=== PATIENT | female | born 1990 | race Caucasian/White ===

== ENCOUNTER → 2018-03-18 19:55 | Observation (INO) ==
[2018-03-18 16:45] LABS: Bilirubin,Urine Negative (Negative); Blood,Urine Negative (Negative); Clarity,Urine Cloudy (Clear); Color,Urine Yellow (Yellow); Glucose,Urine (UA) Normal (Normal); Ketones,Urine 15 mg/dL (Negative); Leukocyte Esterase,Urine Large (Negative); Nitrite,Urine Negative (Negative); PH,Urine 5.5 pH Units (5.0-8.0); Protein,Urine Negative (Neg-Trace); Specific Gravity,Urine 1.022 (1.010-1.025); Urobilinogen,Urine Normal (Normal)
[2018-03-18 16:48] LABS: Amphetamine Screen,Urine Negative ng/mL (Cutoff=1000); Barbiturate Screen,Urine Negative ng/mL (Cutoff=200); Benzodiazepines Screen,Urine Negative ng/mL (Cutoff=200); Cannabinoid Screen,Urine Negative ng/mL (Cutoff = 50); Cocaine Screen,Urine Negative ng/mL (Cutoff= 300); Opiate Screen,Urine Negative ng/mL (Cutoff=300); Phencyclidine Screen,Urine Negative ng/mL (Cutoff=25)
[2018-03-18 16:51] LABS: Bacteria,Urine Few per hpf (None-Few); Hyaline Casts,Urine None Seen per lpf (None-Few); RBC,Urine 0-3 per hpf (0-3)
[2018-03-18 17:04] LABS: Squamous Epithelial Cell,Urine Few per lpf (None-Few)
[2018-03-18 17:05] LABS: WBC,Urine 0-3 per hpf (0-3)
--- NOTE | 2018-03-18 17:18 | OB/GYN Progress Note ---
Date of Encounter: 03/18/18 Time of Encounter: 17:13 - Assessment and Plan (1) 33 weeks gestation of Current Visit: Yes Status: Acute Admitted to observation for labor and vaginal discharge evaluation (2) Vaginal discharge during in third trimester Current Visit: Yes Status: Acute Sterile speculum exam completed with large amount of green watery discharge in vaginal vault as well as adherent to vaginal dunham. Fern negative, nitrazine negative, vaginosis panel collected and sent to lab. Awaiting results. Treat for vaginal infection as appropriate (3) NST (non-stress test) reactive Current Visit: Yes Status: Acute FHR 145 bpm, moderate variability, +15 x 15 accelerations, no decelerations. Uterine irritability noted on monitor, by mouth hydration initiated. Subjective - Subjective Principal diagnosis: Vaginal discharge Interval history: Hazel is a at 33w5d who present with complaint of watery and "chunky" vaginal discharge for the past week approximately. She states she noticed the watery fluid today. Patient reports positive movement, denies bleeding, denies intercourse in the last 48 hours. Her has been uncomplicated thus far. Antepartum ROS: loss of fluid, movement normal, contractions, no vaginal bleeding Objective - Vital Signs Vital Signs: Intake and Output 03/18/18 03/18/18 03/18/18 07:59 15:59 23:59 Other: Weight 61.3 kg Patient Weight 03/18/18 23:59 Weight 61.3 kg - Exam FHR: category 1 FHR comments: FHR 145 bpm, moderate variability, +15x15 accels, no decelerations Uterine irritability noted, ctx q 1-[address] Matamoros aware of patient arrival, complaint and current EFM tracing. Auscultation: bilateral: normal Abdomen: Present: normal appearance, soft, gravid Uterus: Present: normal Cervical dilation: Closed - Labs Labs: Abnormal lab results Urine Clarity Cloudy (Clear) A 03/18/18 15:34 Urine Ketones 15 mg/dL (Negative) H 03/18/18 15:34 Ur Leukocyte Esterase Large (Negative) H 03/18/18 15:34 Ur Culture Indicated? YES (NO) A 03/18/18 15:34
[2018-03-18 17:34] LABS: Candida DNA DETECTED (Not Detect); Gardnerella DNA DETECTED (Not Detect); Trichomonas DNA Not Detected (Not Detect)
--- NOTE | 2018-03-18 19:30 | Discharge Summary ---
Date of Encounter: 03/18/18 Time of Encounter: 19:29 - Discharge Diagnosis (1) 33 weeks gestation of Priority: Primary Status: Acute Comments: Admitted to observation for vaginal discharge No cervical change during stay. (2) Vaginal discharge during in third trimester Priority: Secondary Status: Acute Comments: Vaginosis panel returned + for BV and yeast. Rx for Flagyl and Terazol sent to patient's pharmacy (3) NST (non-stress test) reactive Priority: Secondary Status: Acute Comments: FHR 125 bpm, moderate variability, +15x15 accels, no decels. (4) Yeast vaginitis Priority: Secondary Status: Acute Comments: Terazol 7 sent to patient's pharmacy (5) Bacterial vaginosis Priority: Secondary Status: Acute Comments: Flagyl prescription sent to patient's pharmacy - Discharge Medications Home Medications: Pnv No.122/Iron/Folic Acid [ Multi Tablet] 1 tab PO DAILY 03/18/18 [History] Allergies/Adverse Reactions: Allergy/AdvReac Type Severity Reaction Status Date / Time Penicillins Allergy Hives Verified 07/26/17 09:09 Data Procedures and tests throughout hospitalization: Laboratory Tests 03/18/18 03/18/18 03/18/18 15:34 15:34 15:34 Urine Color Yellow Urine Clarity Cloudy A Urine pH 5.5 Ur Specific [place] 1.022 Urine Protein Negative Urine Glucose (UA) Normal Urine Ketones 15 H Urine Blood Negative Urine Nitrite Negative Urine Bilirubin Negative Urine Urobilinogen Normal Ur Leukocyte Esterase Large H Urine Microscopic RBC 0-3 Urine Microscopic WBC 0-3 Ur Squamous Epith Cells Few Urine Bacteria Few Hyaline Casts None Seen Ur Culture Indicated? YES A Urine Opiates Screen Negative Ur Barbiturates Screen Negative Ur Phencyclidine Scrn Negative Ur Amphetamines Screen Negative U Benzodiazepines Scrn Negative Urine Cocaine Screen Negative U Marijuana (THC) Screen Negative Ur Drug Screen Interp See Below Ange species DNA DETECTED A Gardnerella DNA Probe DETECTED A Trichomonas DNA Probe Not Detected Labs on day of discharge: Labs from last 24 hours 03/18/18 03/18/18 03/18/18 15:34 15:34 15:34 Urine Color Yellow Urine Clarity Cloudy A Urine pH 5.5 Ur Specific [place] 1.022 Urine Protein Negative Urine Glucose (UA) Normal Urine Ketones 15 H Urine Blood Negative Urine Nitrite Negative Urine Bilirubin Negative Urine Urobilinogen Normal Ur Leukocyte Esterase Large H Urine Microscopic RBC 0-3 Urine Microscopic WBC 0-3 Ur Squamous Epith Cells Few Urine Bacteria Few Hyaline Casts None Seen Ur Culture Indicated? YES A Urine Opiates Screen Negative Ur Barbiturates Screen Negative Ur Phencyclidine Scrn Negative Ur Amphetamines Screen Negative U Benzodiazepines Scrn Negative Urine Cocaine Screen Negative U Marijuana (THC) Screen Negative Ur Drug Screen Interp See Below Ange species DNA DETECTED A Gardnerella DNA Probe DETECTED A Trichomonas DNA Probe Not Detected Date of admission: 03/18/18 15:01 Primary care physician: PCP NONE Discharging clinician: Gilda Molina Anticipated date of discharge: 03/18/18 - Patient Status Disposition: Home, Self-Care Condition: Good Functional capacity at discharge: independent ambulation Overall status at discharge: patient is progressing back to baseline - Discharge Instructions Follow Up With: NONE,PCP [Primary Care Provider] - - Diet and Activity Activity: resume usual activities as tolerated Diet: regular diet Hospital Course LANGUAGE INTERPRETER Hospital course: See antepartum note. Time Attestation: Total time spent providing and/or coordinating discharge services: Time Spent: Less than 30 minutes Exam - Constitutional General appearance IM: A&O X 3, pleasant, no acute distress, answers questions appropriately - Respiratory Respiratory exam: Present: CTAB - Cardiovascular Cardiovascular exam IM: Present: RRR, +S1, +S2 - GI/Abdominal GI/Abdominal exam IM: normal bowel sounds - Extremities Exam Extremities exam IM: Present: full ROM, normal capillary refill, normal inspection - Neurological Exam Neurological exam: alert, normal gait, oriented X3 - VTE Reasons for not Prescribing Prophylaxis: Treatment not Indicated - Low risk for VTE
[~2018-03-18 19:55] MED LIST: Ringers Solution, Lactated 1,000 ML IVC ONE
== END | disposition home or self-care (01) ==
LOC: 1NENULAB
PROVIDERS: ADMIT Registered Nurse; ATTEND Registered Nurse

== ENCOUNTER → 2018-04-18 21:50 | Observation (INO) ==
[2018-04-18 21:21] LABS: Amphetamine Screen,Urine Negative ng/mL (Cutoff=1000); Barbiturate Screen,Urine Negative ng/mL (Cutoff=200); Benzodiazepines Screen,Urine Negative ng/mL (Cutoff=200); Cannabinoid Screen,Urine Negative ng/mL (Cutoff = 50); Cocaine Screen,Urine Negative ng/mL (Cutoff= 300); Opiate Screen,Urine Negative ng/mL (Cutoff=300); Phencyclidine Screen,Urine Negative ng/mL (Cutoff=25)
--- NOTE | 2018-04-18 21:53 | Discharge Summary ---
Date of Encounter: 04/18/18 Time of Encounter: 21:48 - Discharge Diagnosis (1) 38 weeks gestation of Priority: Primary Status: Acute Comments: Admit observation for labor evaluation. (2) False labor after 37 weeks of gestation without delivery Priority: Secondary Status: Acute Comments: Patient 2 cm without change after 2 hours of observation. To follow-up on with Dr. Castro for routine visit (3) NST (non-stress test) reactive Priority: Secondary Status: Acute Comments: FHR 125 bpm, moderate variability, +15x15 accels, no decels. - Discharge Medications Home Medications: Pnv No.122/Iron/Folic Acid [ Multi Tablet] 1 tab PO DAILY 03/18/18 [History] Allergies/Adverse Reactions: Allergy/AdvReac Type Severity Reaction Status Date / Time Penicillins Allergy Mild Hives Verified 04/18/18 19:42 Data Procedures and tests throughout hospitalization: Laboratory Tests 04/18/18 19:55 Urine Opiates Screen Negative Ur Barbiturates Screen Negative Ur Phencyclidine Scrn Negative Ur Amphetamines Screen Negative U Benzodiazepines Scrn Negative Urine Cocaine Screen Negative U Marijuana (THC) Screen Negative Ur Drug Screen Interp See Below Labs on day of discharge: Labs from last 24 hours 04/18/18 19:55 Urine Opiates Screen Negative Ur Barbiturates Screen Negative Ur Phencyclidine Scrn Negative Ur Amphetamines Screen Negative U Benzodiazepines Scrn Negative Urine Cocaine Screen Negative U Marijuana (THC) Screen Negative Ur Drug Screen Interp See Below Date of admission: 04/18/18 19:23 Discharging clinician: Gilda Molina Anticipated date of discharge: 04/18/18 - Patient Status Disposition: Home, Self-Care Condition: Good Functional capacity at discharge: independent ambulation Overall status at discharge: patient is progressing back to baseline - Discharge Instructions Additional Instructions: LABOR AND DELIVERY DISCHARGE INSTRUCTIONS Signs and Symptoms to be Reported to your Doctor Immediately: * Sudden gush, continuous or intermittent lead of fluid from vagina (note the time of gush and color of fluid) * Onset of bright red vaginal bleeding with or without pain (if you had a vaginal exam during this visit you may notice some dark red spotting. This is normal.) * Contractions that are 5 minutes apart (from the beginning of one contraction to the beginning of the next) and last 45-60 seonds; contractions that you can no longer walk, talk or laugh through. * A change in the baby's activity. This could be an increase or decrease in activity. * Severe headache which does not go away with tylenol. * Sudden swelling in the face, hands, arms and/or legs. * Upper abdominal pain - sometimes associated with heartburn or nausea and is not relieved by Maalox, Mylanta or Tums. * Kick Counts __ One hour after a meal, lay down on one side in a quiet place. Count the number of time the baby moves during an hour. If less than 6 movements, notify your physician Diet: *Force fluids, 8 to 10 tall glasses of fluid per day - may include popsicles and jello *Limit caffeine - this includes chocolate, coffee, tea, any soft drink containing such as all jakob, Lobo Yellow and Mountain Dew - Diet and Activity Activity: resume usual activities as tolerated Diet: regular diet Hospital Course HEALTH SERVICES DIRECTOR Hospital course: Sol arrived with complaints of contractions since early this morning. He was 2 cm on arrival, after 2 hours of observation the cervix is without change. She has a reactive NST irregular contractions are noted and she has a follow-up appointment with Dr. Castro on for routine care. She reports positive movement, denies vaginal bleeding and fluid leakage. Time Attestation: Total time spent providing and/or coordinating discharge services: Time Spent: Less than 30 minutes Exam - Constitutional General appearance IM: A&O X 3, pleasant, no acute distress, answers questions appropriately - Respiratory Respiratory exam: Present: CTAB - Cardiovascular Cardiovascular exam IM: Present: RRR, +S1, +S2 - GI/Abdominal GI/Abdominal exam IM: normal bowel sounds, soft - Rectal Rectal exam: deferred - Extremities Exam Extremities exam IM: Present: full ROM, normal capillary refill, normal inspection - Neurological Exam Neurological exam: alert, normal gait, oriented X3 - VTE Reasons for not Prescribing Prophylaxis: Treatment not Indicated - Low risk for VTE
== END | disposition home or self-care (01) ==
LOC: 1NENULAB
PROVIDERS: ADMIT Registered Nurse; ATTEND Registered Nurse

== ENCOUNTER 2018-04-25 02:55 | Inpatient (IN) ==
[~2018-04-25 02:55] MED LIST changes: +*HR* Nalbuphine 10 MG/ML AMPUL IVP PRN; +Famotidine 20 MG/2 ML VIAL IVP PRN; +Lidocaine 1% 20 ML MDV INFILT PRN; +Metoclopramide 10 MG/2 ML VIAL IVP PRN; +Naloxone 0.4 MG/ML INJ IVP PRN; +Ondansetron 4 MG/2 ML VIAL IVP PRN; -Ringers Solution, Lactated 1,000 ML IVC ONE
[2018-04-25] MEDS ORDERED: Ringers Solution, Lactated 1,000 ML IVC SCH (03:00)
--- NOTE | 2018-04-25 03:02 | OB/GYN History & Physical ---
Date of Encounter: 04/25/18 Time of Encounter: 02:58 Assessment and Plan (1) 39 weeks gestation of Current visit: Yes Status: Acute Admit for labor GBS negative Consider pitocin / AROM for augmentation Patient may have nubain/epidural upon request Anticipate vaginal delivery POC per consult with Dr Morse History of Present Illness Chief complaint: Laboring HPI: Ms. Jenkins is a 27 year old that arrives to triage with c/o contractions that began yesterday morning at 0700 and have progressively gotten worse. She states positive movement. She denies leaking of fluid, vaginal bleeding, vaginal discharge, headache, visual disturbances, and epigastric pain. She was seen by Dr Sharp for her care which was adequate. She has had an uncomplicated . Labs: Blood type A- HIV NR HepC NR Hep B NR RPR NR Varicella Immune Rubella Immune GBS negative Past Med Surg Social Fam HX - Past Medical History Medical history: non-contributory Additional medical history: Gallbladder Psychiatric history: no psych history - Past Surgical History Surgical History: cholecystectomy - Social History Smoking Status: Never smoker Smokeless Tobacco Status: No Alcohol use: none Drug use: none - Family History Mother Family Member Ethnicity: Non- Living Status: Still Living Hx Family Cardiac Disorders: No Hx Family Respiratory Disorders: No Hx Family Cancer: No Hx Family GI Disorders: No Hx Family Endocrine Disorder: No Hx Family Neuromuscular Disorders: No Hx Family Neurologic Disorders: No Hx Family HEENT Disorders: No Hx Family Autoimmune Disorders: No Obstetrical History - Pregnancies : 1 Para: 0 Term: 0 : 0 Ab's: 0 Livin Medications and Allergies Pnv No.122/Iron/Folic Acid [ Multi Tablet] 1 tab PO DAILY 03/18/18 [History] Allergy/AdvReac Type Severity Reaction Status Date / Time Penicillins Allergy Mild Hives Verified 04/18/18 19:42 Amoxicillin Allergy Hives Verified 04/25/18 01:55 latex Allergy Rash Verified 04/25/18 01:55 Review of System OB All systems PM: reviewed and no additional remarkable complaints except as stated Exam - Constitutional Constitutional: well developed, well nourished, average body habitus, moderate distress - HEENT HEENT: Normocephaly, Mucus Membranes Moist - Neck Neck exam: full ROM - Lungs Respiratory exam: CTAB - Cardiovascular Cardiovascular exam: RRR, +S1, +S2 - Abdomen Abdomen: Present: bowel sounds normal, gravid, non tender - Extremities Extremities exam: normal capillary refill, normal inspection, radial pulses palpable and symmetrical Deep Tendon Reflex Grade: 2+ Normal - Vulva Vulva: bilateral: normal - Vagina Vagina: Present: normal moisture - Cervix Dilation: 3 (per RN exam) Effacement: 90 (per RN exam) Station: -2 - Uterus Uterus exam: Present: normal size, normal contour - Anus/Rectum Anus/Rectum: Present: normal perianal skin Results All other labs normal. - VTE Reasons for not Prescribing Prophylaxis: Treatment not Indicated - Low risk for VTE
[2018-04-25 03:17] LABS: Amphetamine Screen,Urine Negative ng/mL (Cutoff=1000); Barbiturate Screen,Urine Positive ng/mL (Cutoff=200); Benzodiazepines Screen,Urine Negative ng/mL (Cutoff=200); Cannabinoid Screen,Urine Negative ng/mL (Cutoff = 50); Cocaine Screen,Urine Negative ng/mL (Cutoff= 300); Opiate Screen,Urine Negative ng/mL (Cutoff=300); Phencyclidine Screen,Urine Negative ng/mL (Cutoff=25)
[2018-04-25 03:44] LABS: Basophils % 0.2 %; Eosinophils % 0.1 %; Hematocrit 34.7 % (35.3-44.9); Hemoglobin 11.4 g/dL (11.5-15.4); Immature Granulocytes % 0.4 % (0-4); Lymphocytes # 2.3 K/mcL (0.6-4.6); Lymphocytes % 22.9 %; Mean Corpuscular HGB Conc 32.9 g/dL (31.6-35.5); Mean Corpuscular Hemoglobin 28.8 pg (28.0-33.3); Mean Corpuscular Volume 87.6 fL (83.0-100.0); Mean Platelet Volume 13.1 fL (9.4-12.4); Monocytes # 0.8 K/mcL (0.0-1.3); Monocytes % 7.9 %; Platelet Count 165 K/mcL (140-400); Red Blood Count 3.96 M/mcL (3.82-4.97); Red Cell Distribution Width 12.7 % (11.5-14.5); Segmented Neutrophils % 68.5 %
[2018-04-25] MEDS ORDERED: *HR* FentaNYL (PF) 100 MCG/2 ML VIAL EP ONE (05:11)
--- NOTE | 2018-04-25 05:11 | Anesthesia Evaluation PreOp ---
Date of Encounter: 04/25/18 Time of Encounter: 05:09 - Past History Planned Operation: harriet Cardiac History: Denies any Significant Hx Pulmonary History: Denies Any Significant HX HARDWARE SUPPLIES SALES REPRESENTATIVE History: Denies Any Significant HX Other Medical History: GERD Anesthesia History: No Prior Anesthetic Complications, Past Anesthesia (alicia) : Yes Test: Positive Alcohol Use: none Drug use: none Medications and Allergies Pnv No.122/Iron/Folic Acid [ Multi Tablet] 1 tab PO DAILY 03/18/18 [History] Allergy/AdvReac Type Severity Reaction Status Date / Time Penicillins Allergy Mild Hives Verified 04/18/18 19:42 Amoxicillin Allergy Hives Verified 04/25/18 01:55 latex Allergy Rash Verified 04/25/18 01:55 - Meds/Allergy Pre-op Review Medications Reviewed: Yes Allergies Reviewed: Yes Beta Blockers on Current Med List: No Anesthesia Results - Labs 04/25/18 03:20 Anesthesia Exam 123/77 77 fht 133 Height: 5'4" Weight: 137 NPO (# of Hours): 2 Pain Scale: 5 Pain Scale Used: Numeric (1 - 10) - HEENT Pupil (Motor): Pupils equal Mallampati: II Teeth: Normal Oral Opening: Greater than 3 - HARDWARE SUPPLIES SALES REPRESENTATIVE LOC: Oriented HARDWARE SUPPLIES SALES REPRESENTATIVE Motor: Normal RUE, Normal LUE, Normal RLE, Normal LLE, Normal Face HARDWARE SUPPLIES SALES REPRESENTATIVE Sensory: Normal: RUE, LUE, RLE, LLE, Face - Cardiac Rhythm: Regular Murmur: None - Pulmonary Breath Sounds: bilateral Clear Respiratory Effort: Symmetrical Anesthesia Assess/Plan ASA Score: 2 Level of consciousness: Cooperative Anesthetic Plan: Epidural (risks discussed questions answered, consented) Autologous Blood: No Monitoring Plan: Standard Monitors Recovery Plan: Other
[2018-04-25] MEDS ORDERED: *HR* FentaNYL (PF) 100 MCG/2 ML VIAL ONE (05:14)
[2018-04-25] MEDS ORDERED: Lidocaine -MPF 2% 5 ML VIAL ONE (05:14)
[2018-04-25] MEDS ORDERED: Epidural Premix (fent/bupiv) 110 ML EP SCH (05:15)
--- NOTE | 2018-04-25 05:40 | Anesthesia Procedures ---
Addendum entered and electronically signed by Camron Winkler CRNA 04/25/18 11:46: Delivery Date: 04/25/18 Delivery Time: 10:40 Original Note: Date of Encounter: 04/25/18 Time of Encounter: 05:38 Procedures: Anesthesia - Epidural/Spinal Patient ID/Chart reviewed: Yes Patient examined: Yes OB Eval: Gestational age: 39 OB Eval: : 1 OB Eval: Hx Para: 0 OB Eval: Dilated at (cm): 3 OB Eval: Contractions: Non-stressed pattern Consent Obtained: Yes Supplemental Oxygen: None/Room Air Site Prep: Aseptic Technique, Sterile prep and drape, 0.5% Chlorhexidine/Alcohol Patient position: upright Local Anesthetic: Lidocaine 1% Amount of Local Anesthetic used: 3 Touhy Needle Gauge: 18 Touhy Needle Depth (cm): 6 Catheter Depth at Skin (cm): 15 Test Dose (1.5% Lido + Epi): Volume given (mls): 3 Test Dose Result: Negative Loading Dose: Fentanyl (mcg): 100 Loading Dose: Other: rop 0.2% 10cc Loading Dose Administered: Thru Touhy Needle Infusion Med: 0.125% Bupivacaine w/ 2 mcg/ml Fentanyl Infusion Rate (mls/hr): 15 (pcea 5 cc q30") Catheter Secured in Place: Tegaderm Interspace Used: L2-L3 Loss of Resistance (JARRET): Yes Blood: No CSF: No Paresthesia: No Procedure: aseptic stevie well VSS, effective
--- NOTE | 2018-04-25 07:14 | OB Labor Progress Note ---
Date of Encounter: 04/25/18 Time of Encounter: 07:12 Labor Progress Note - Subjective Subjective: Resting comfortably with epidural in place - Vital Signs Vital Signs: VSS - Cervix Cervix: 5-6/90/0 - Heart Tones Heart Tones: 120 Cat 1 tracing - Pateros Pateros: Contractions every 2-3 minutes - Plan Plan: Continue routine labor management GBS negative Consider pitocin if needed for augmentation Anticipate vaginal delivery POC per consult with Dr Morse
[2018-04-25] MEDS ORDERED: Oxytocin 20 units/ LR 1000 mL 20 UNIT/1,000 ML BAG IVC ONE ×2 (07:51→12:06)
--- NOTE | 2018-04-25 11:07 | OB/GYN Procedure Note ---
Delivery - Delivery Date: 04/25/17 Provider: Rubi Grider Intrapartum events: none Delivery induction: none Delivery augmentation: pitocin Delivery monitor: external FHT, external uterine Anesthesia: epidural Quantitated Blood Loss: 350 - (s) Infant A Infant Delivery Date: 04/25/18 Infant Delivery Time: 10:40 Presentation: vertex Position: ALANA Gender: Male Viability: Viable Pounds: 7 Ounces: 15 Weight Gram: 3.605 kg at 1 minute: 9 at 5 mins: 9 Shoulder Dystocia: not encountered Placenta: spontaneous Cord: true knot - Repair Episiotomy: none Laceration Description: Vaginal - Complications Delivery complications: none - Disposition Mom disposition: stable in LDR disposition: stable in LDR - Comments Comments: delivered without complication. Delivered in direct OA position with restitution to ALANA, crying . Upon inspection of the perineum, bilateral vaginal wall laceration(S) appreciated, NO sulcal laceration(s) visualized. Repair was performed in the usual locked fashion prior to the vaginal introitus (using2-0 vicryl). Following repair, hemostasis was appreciated. Bilateral periurethral laceration(s) appreciated, small clitorial laceration also appreciated. Not repaired, as these were hemostatic. EBL 350mL Apgars 9/9 Weight: 7#15oz Placenta was held, not sent to pathology. True knot was appreciated in the umbilical cord. Placenta normal, insertion close but not technically marginal. MD ELIJAH
[2018-04-25] MEDS ORDERED: Rho Immune Globulin 1,500 UNIT SYRINGE IM PRN (14:20)
[2018-04-25] MEDS ORDERED: Measles/Mumps/Rubella Vacc 0.5 ML VIAL SQ PRN (14:20)
[2018-04-25] MEDS ORDERED: Acetaminophen 325 MG TABLET PO PRN (14:20)
[2018-04-25] MEDS ORDERED: Lanolin 7 G OINT...G. TP PRN (14:20)
[2018-04-25] MEDS ORDERED: Benzocaine/Menthol 56 GM AEROSOL SPRAY TP PRN (14:20)
[2018-04-25] MEDS ORDERED: Oxytocin 20 units/ LR 1000 mL 20 UNIT/1,000 ML BAG IVC SCH (14:20)
[2018-04-25] MEDS: Ibuprofen 600 MG TABLET PO PRN (18:43)
[2018-04-26] MEDS: Ibuprofen 600 MG TABLET PO PRN (04:07)
[2018-04-26 08:29] VITALS: BP 128/78
[2018-04-26] MEDS ORDERED: Prenatal Vit/FA 1 EACH TABLET PO SCH (09:00)
--- NOTE | 2018-04-26 10:03 | Discharge Summary ---
Date of Encounter: 04/26/18 Time of Encounter: 09:58 - Discharge Diagnosis (1) Vaginal delivery Priority: Primary Status: Acute Comments: Feeling well Tolerating regular diet Pain well-controlled with by mouth pain meds Ambulating independently Voiding independently Lochia light Passing flatus, no BM yet Vital signs stable Discharge home today (2) Breast feeding status of mother Priority: Secondary Status: Acute Comments: Community resources provided - Discharge Medications Prescriptions: Ibuprofen [Motrin] 600 mg PO Q6HR PRN #30 tablet PRN Reason: Cramping Docusate Sodium [Pedia-Lax Stool Softener] 100 mg PO BID 15 Days mls Home Medications: Pnv No.122/Iron/Folic Acid [ Multi Tablet] 1 tab PO DAILY 03/18/18 [History] Acetaminophen [Tylenol] 650 mg PO Q6HR PRN tablet 04/26/18 [Rx] Benzocaine/Menthol [place] [Dermoplast [place]] 1 appl TP QID PRN aerosol 04/26/18 [Rx] Docusate Sodium [Pedia-Lax Stool Softener] 100 mg PO BID 15 Days mls 04/26/18 [Rx] Ibuprofen [Motrin] 600 mg PO Q6HR PRN #30 tablet 04/26/18 [Rx] Lanolin [Lansinoh] 1 appl TP TID PRN oint...g. 04/26/18 [Rx] Allergies/Adverse Reactions: Allergy/AdvReac Type Severity Reaction Status Date / Time Penicillins Allergy Mild Hives Verified 04/18/18 19:42 Amoxicillin Allergy Hives Verified 04/25/18 01:55 latex Allergy Rash Verified 04/25/18 01:55 Data Procedures and tests throughout hospitalization: Laboratory Tests 04/25/18 04/25/18 04/25/18 02:12 03:20 11:10 WBC 10.2 RBC 3.96 Hgb 11.4 L Hct 34.7 L MCV 87.6 MCH 28.8 MCHC 32.9 RDW 12.7 Plt Count 165 MPV 13.1 H Immature Gran % 0.4 Seg Neutrophils % 68.5 Lymphocytes % 22.9 Monocytes % 7.9 Eosinophils % 0.1 Basophils % 0.2 Neutrophils # 7.0 Lymphocytes # 2.3 Monocytes # 0.8 Eosinophils # 0.0 Basophils # 0.0 Urine Opiates Screen Negative Ur Barbiturates Screen Positive H Ur Phencyclidine Scrn Negative Ur Amphetamines Screen Negative U Benzodiazepines Scrn Negative Urine Cocaine Screen Negative U Marijuana (THC) Screen Negative Ur Drug Screen Interp See Below Screen NEGATIVE Baby's Blood Type A RH POSITIVE Mother's Blood Type A RH NEGATIVE Rhogam Indicated YES Rhogam Req for Mother 1 Labs on day of discharge: Labs from last 24 hours 04/25/18 11:10 Screen NEGATIVE Baby's Blood Type A RH POSITIVE Mother's Blood Type A RH NEGATIVE Rhogam Indicated YES Rhogam Req for Mother 1 Date of admission: 04/25/18 02:55 Primary care physician: PCP NONE Consults: 04/25/18 14:20 Consult to Pantograph Transferrer [CONS] Routine Comment: Vaginal delivery, consult needed Discharging clinician: Rubi Triplett Anticipated date of discharge: 04/26/18 - Patient Status Disposition: Home, Self-Care Condition: Good Functional capacity at discharge: independent ambulation Overall status at discharge: patient is progressing back to baseline - Discharge Instructions Follow Up With: NONE,PCP [Primary Care Provider] - Carlos Alberto Sharp MD [Partnered Physician] - - Diet and Activity Activity: increase activity as tolerated Diet: regular diet Hospital Course Procedures: Reason for admission: rupture of membranes, IUP at term Delivery: Episiotomy: none Laceration: vaginal side wall (bilateral) Other procedures: none complications: none Discharge diagnosis: IUP at term delivered [place] baby: male Hospital course: Patient presented with spontaneous rupture membranes at term. She progressed with an uncomplicated course to complete and delivered a viable male . Her course has also been uncomplicated. She will be discharged home today in stable condition. Time Attestation: Total time spent providing and/or coordinating discharge services: Time Spent: Less than 30 minutes Exam - Constitutional Vitals: Temp Pulse Resp BP Pulse Ox 98.7 F 61 16 128/78 98 04/26/18 08:17 04/26/18 08:17 04/26/18 08:17 04/26/18 08:17 04/26/18 08:17 General appearance IM: A&O X 3 - Respiratory Respiratory exam: Present: CTAB - Cardiovascular Cardiovascular exam IM: Present: RRR, +S1, +S2 - GI/Abdominal GI/Abdominal exam IM: normal bowel sounds, no peritoneal signs - Rectal Rectal exam: deferred - Uterine Tone: Firm Uterus Position: At Umbilicus, Midline - Extremities Exam Extremities exam IM: Present: normal capillary refill, normal inspection, radial pulses palpable and symmetrical - Neurological Exam Neurological exam: alert, CN II-XII intact, normal gait, oriented X3, reflexes normal, no focal deficits, strengths equal and symetr throughout - Psychiatric Additional comments: Signs and symptoms of depression discussed with patient and partner and they both verbalized understanding of when to seek help. Patient denies history of depression and anxiety on all - Skin Additional comments: Breasts: Soft, nontender; nipples intact without erythema.
[2018-04-26] MEDS ORDERED: Hydrocortisone Rectal 2.5% CRM 28 GM TUBE RC PRN (10:26)
== END 2018-04-26 11:20 | disposition home or self-care (01) | DRG 807 ==
LOC: 1NENULAB → 1NENUOBS 13:35
PROVIDERS: ADMIT Advanced Practice Midwife; ATTEND Advanced Practice Midwife

== ENCOUNTER → 2020-08-20 23:22 | Observation (INO) ==
[2020-08-20 21:00] LABS: Protein/Creatinine Ratio,Urine 0.25 mg/mg (0.00-0.20)
[2020-08-20 21:01] LABS: Bilirubin,Urine Negative (Negative); Blood,Urine Negative (Negative); Clarity,Urine Clear (Clear); Color,Urine Colorless (Yellow); Glucose,Urine (UA) Normal (Normal); Ketones,Urine Negative (Negative); Leukocyte Esterase,Urine Large (Negative); Nitrite,Urine Negative (Negative); Protein,Urine Negative (Neg-Trace); Specific Gravity,Urine 1.008 (1.010-1.025); Urobilinogen,Urine Normal (Normal)
[2020-08-20 21:10] LABS: Alanine Aminotransferase 9 Units/L (7-52); Aspartate Amino Transferase 14 Units/L (13-39); BUN/Creatinine Ratio 10 (6-26); Blood Urea Nitrogen 6 mg/dL (6-20); Lactate Dehydrogenase 110 Units/L (140-271); Uric Acid 4.5 mg/dL (2.3-7.6); eGFR For African Americans > 60 (> 60); eGFR For Non-African Americans > 60 (> 60)
[2020-08-20 21:13] LABS: Squamous Epithelial Cell,Urine Few per hpf (None-Few)
[2020-08-20 21:14] LABS: RBC,Urine 0-3 per hpf (0-3)
[2020-08-20 21:15] LABS: Bacteria,Urine None Seen per hpf (None-Few); Hyaline Casts,Urine None Seen per lpf (None Seen)
[2020-08-20 21:45] LABS: Basophils % 0.3 %; Eosinophils % 0.3 %; Hematocrit 32.6 % (35.3-44.9); Hemoglobin 10.7 g/dL (11.5-15.4); Immature Granulocytes % 0.6 % (0-4); Lymphocytes # 1.9 K/mcL (0.6-4.6); Lymphocytes % 18.8 %; Mean Corpuscular HGB Conc 32.8 g/dL (31.6-35.5); Mean Corpuscular Hemoglobin 29.7 pg (28.0-33.3); Mean Corpuscular Volume 90.6 fL (83.0-100.0); Mean Platelet Volume 11.9 fL (9.4-12.4); Monocytes # 0.8 K/mcL (0.0-1.3); Monocytes % 7.6 %; Neutrophils # 7.4 K/mcL (1.6-8.9); Platelet Count 193 K/mcL (140-400); Red Cell Distribution Width 12.2 % (11.5-14.5); Segmented Neutrophils % 72.4 %; White Blood Count 10.2 K/mcL (4.3-11.1)
[~2020-08-20 23:22] MED LIST changes: -*HR* Nalbuphine 10 MG/ML AMPUL IVP PRN; -Famotidine 20 MG/2 ML VIAL IVP PRN; -Lidocaine 1% 20 ML MDV INFILT PRN; -Naloxone 0.4 MG/ML INJ IVP PRN; -Ondansetron 4 MG/2 ML VIAL IVP PRN; +Ringers Solution, Lactated 1,000 ML ONE
== END | disposition home or self-care (01) ==
LOC: 1NENULAB
PROVIDERS: ADMIT Advanced Practice Midwife; ATTEND Advanced Practice Midwife

== ENCOUNTER 2020-10-18 18:37 | Inpatient (IN) ==
[2020-10-18] MEDS ORDERED: Vancomycin 2,000 MG/520 ML IV.SOLN IVPB ONE (18:58)
[2020-10-18] MEDS ORDERED: Naloxone 0.4 MG/ML INJ IVP PRN (18:58)
[2020-10-18] MEDS ORDERED: Famotidine 20 MG/2 ML VIAL IVP PRN (18:58)
[2020-10-18] MEDS ORDERED: Lidocaine 1% 20 ML MDV INFILT PRN (18:58)
[2020-10-18] MEDS ORDERED: *HR* Nalbuphine 10 MG/ML AMPUL IV PRN (18:58)
[2020-10-18] MEDS ORDERED: Ondansetron 4 MG/2 ML VIAL IVP PRN (18:58)
[2020-10-18] MEDS ORDERED: Ringers Solution, Lactated 1,000 ML IVC SCH (19:00)
[2020-10-18 20:21] LABS: Basophils % 0.2 %; Eosinophils % 0.2 %; Hematocrit 32.7 % (35.3-44.9); Hemoglobin 10.5 g/dL (11.5-15.4); Immature Granulocytes % 0.7 % (0-4); Lymphocytes # 2.1 K/mcL (0.6-4.6); Lymphocytes % 17.5 %; Mean Corpuscular HGB Conc 32.1 g/dL (31.6-35.5); Mean Corpuscular Hemoglobin 27.9 pg (28.0-33.3); Mean Corpuscular Volume 86.7 fL (83.0-100.0); Mean Platelet Volume 11.9 fL (9.4-12.4); Monocytes # 0.9 K/mcL (0.0-1.3); Monocytes % 7.7 %; Neutrophils # 9.1 K/mcL (1.6-8.9); Platelet Count 190 K/mcL (140-400); Red Blood Count 3.77 M/mcL (3.82-4.97); Red Cell Distribution Width 12.2 % (11.5-14.5); Segmented Neutrophils % 73.7 %; White Blood Count 12.3 K/mcL (4.3-11.1)
[2020-10-18 20:35] LABS: Amphetamine Screen,Urine Negative ng/mL (Cutoff=1000); Barbiturate Screen,Urine Negative ng/mL (Cutoff=200); Benzodiazepines Screen,Urine Negative ng/mL (Cutoff=200); Cannabinoid Screen,Urine Negative ng/mL (Cutoff = 50); Cocaine Screen,Urine Negative ng/mL (Cutoff= 300); Opiate Screen,Urine Negative ng/mL (Cutoff=300); Phencyclidine Screen,Urine Negative ng/mL (Cutoff=25)
[2020-10-18] MEDS ORDERED: EPHEDrine 50 MG/ML VIAL IVP PRN (23:00)
[2020-10-18] MEDS ORDERED: Epidural Premix (fent/bupiv) 110 ML EP SCH (23:00)
[2020-10-18] MEDS ORDERED: Ropivacaine/PF 0.2% 20 ML VIAL EP ONE (23:00)
[2020-10-19] MEDS ORDERED: Oxytocin 20 units/ LR 1000 mL 20 UNIT/1,000 ML BAG IVC SCH ×2 (01:00→05:16)
[2020-10-19] MEDS ORDERED: Rho Immune Globulin 1,500 UNIT SYRINGE IM PRN (05:16)
[2020-10-19] MEDS ORDERED: Acetaminophen 325 MG TABLET PO PRN (05:16)
[2020-10-19] MEDS ORDERED: Benzocaine/Menthol 56 GM AEROSOL SPRAY TP PRN (05:16)
[2020-10-19] MEDS ORDERED: Lanolin 7 G OINT...G. TP PRN (05:16)
[2020-10-19] MEDS: Ibuprofen 600 MG TABLET PO PRN ×2 (05:57→11:59)
[2020-10-19] MEDS: Prenatal Vit/FA 1 EACH TABLET PO SCH (07:43)
[2020-10-19] MEDS ORDERED: Acetaminophen 160 MG TABLET (CHEWABLE) PO PRN (12:12)
[2020-10-19] MEDS: Docusate Oral Soln 100 MG/10 ML UDC PO SCH (21:47)
[2020-10-20] MEDS: Prenatal Vit/FA 1 EACH TABLET PO SCH (07:43)
[2020-10-20 08:03] VITALS: BP 99/60
[2020-10-20] MEDS: Docusate Oral Soln 100 MG/10 ML UDC PO SCH (08:03)
[2020-10-20] MEDS ORDERED: Ferrous Sulfate Oral Soln 300 MG/5 ML UDC PO SCH (09:00)
== END 2020-10-20 10:29 | disposition home or self-care (01) | DRG 560 ==
LOC: 1NENULAB → 1NENUOBS 10-19 05:14
PROVIDERS: ADMIT Advanced Practice Midwife; ATTEND Advanced Practice Midwife